=== PATIENT | male | born 1970 | race Caucasian/White ===

== ENCOUNTER 2018-12-18 20:42 | Emergency (ER) | payer OTHER ==
[2018-12-18 20:48] VITALS: BP 127/77
[2018-12-18] MEDS ORDERED: DOXYCYCLINE HYCLATE 100 MG CAP/TAB PO ONE (21:08)
--- NOTE | 2018-12-18 21:13 | EDPHY ---
H & P Stated Complaint: R elbow swelling, no injury Time Seen by Provider: 12/18/18 20:57 HPI/ROS: CHIEF COMPLAINT: Right elbow swelling and erythema and warmth HISTORY OF PRESENT ILLNESS: The patient is a 48-year-old man with a history of eczema who uses topical steroid cream. The over the last 24 hr he has noticed swelling of the bursa of his right elbow. Mild erythema. Minimally tender. Slight warmth. No history of gout or arthritis. No pain with range of motion of elbow. No known trauma. No known repetitive use. He states that he did notice it after playing Frisbee earlier today and having several acrobatic catches. He has not had a fever. Severity: Moderate Modifying factors: None REVIEW OF SYSTEMS: Constitutional: denies: chills, fever, recent illness, recent injury EENTM: denies: blurred vision, double vision, nose congestion Respiratory: denies: cough, shortness of breath Cardiac: denies: chest pain, irregular heart rate, lightheadedness, palpitations Gastrointestinal/Abdominal: denies: abdominal pain, diarrhea, nausea, vomiting, blood streaked stools Genitourinary: denies: dysuria, frequency, hematuria, pain Musculoskeletal: denies: joint pain, muscle pain Skin: denies: lesions, rash, jaundice, bruising Neurological: denies: headache, numbness, paresthesia, tingling, dizziness, weakness Hematologic/Lymphatic: denies: blood clots, easy bleeding, easy bruising Immunologic/allergic: denies: HIV/AIDS, transplant 10 systems reviewed and negative except as noted EXAM: GENERAL: Well-appearing, well-nourished and in no acute distress. HEAD: Atraumatic, normocephalic. EYES: Pupils equal round and reactive to light, extraocular movements intact, sclera anicteric, conjunctiva are normal. ENT: TMs normal, nares patent, oropharynx clear without exudates. Moist mucous membranes. NECK: Normal range of motion, supple without lymphadenopathy or JVD. LUNGS: Breath sounds clear to auscultation bilaterally and equal. No wheezes rales or rhonchi. HEART: Regular rate and rhythm without murmurs, rubs or gallops. ABDOMEN: Soft, nontender, normoactive bowel sounds. No guarding, no rebound. No masses appreciated. BACK: No CVA tenderness, no spinal tenderness, step-offs or deformities EXTREMITIES: Small olecranon bursitis. Minimal fluid collection palpable. Mild erythema. Normal range of motion, no pitting or edema. No clubbing or cyanosis. NEUROLOGICAL: Cranial nerves II through XII grossly intact. Normal speech, normal gait. 5/5 strength, normal movement in all extremities, normal sensation , normal reflexes PSYCH: Normal mood, normal affect. SKIN: See above. Warm, dry, normal turgor, no visible rashes or lesions. Source: Patient Exam Limitations: No limitations - Personal History Current Tetanus/Diphtheria Vaccine: Yes Current Tetanus Diphtheria and Acellular Pertussis (TDAP): Yes - Medical/Surgical History Hx Asthma: No Hx Chronic Respiratory Disease: No Hx Diabetes: No Hx Cardiac Disease: No Hx Renal Disease: No Hx Cirrhosis: No Hx Alcoholism: No Hx HIV/AIDS: No Hx Splenectomy or Spleen Trauma: No - Social History Smoking Status: Never smoked Constitutional: Initial Vital Signs Temperature (C) 36.7 C 12/18/18 20:46 Heart Rate 80 12/18/18 20:46 Respiratory Rate 16 12/18/18 20:46 Blood Pressure 127/77 H 12/18/18 20:46 O2 Sat (%) 95 12/18/18 20:46 O2 Delivery Mode Room Air Allergies/Adverse Reactions: No Known Allergies Allergy (Unverified 12/18/18 20:45) Home Medications: Medication Instructions Recorded Cortizone-10 12/18/18 Doxycycline Hyclate [Vibramycin] 500 mg PO QID #60 cap 12/18/18 Medical Decision Making ED Course/Re-evaluation: Patient appears to have olecranon bursitis however I am concerned for infection because it is slightly warm and red. I do not think there is significant amount of fluid to tap and I am concerned about putting a needle through the erythematous skin. Will start on doxycycline. He will follow up with his orthopedist in [place] in 2-3 days. Discussed indications for returning including fevers or worsening symptoms or pain. Does not appear to involve the joint space the clinically. No visible abrasions or lacerations. He does not wish to have an x-ray performed. Differential Diagnosis: Partial list of the Differential diagnosis considered include but were not limited to; olecranon bursitis, septic bursitis and although unlikely based on the history and physical exam, I also considered septic joint, gout, rheumatoid arthritis, fracture. I discussed these differential diagnoses and the plan with the patient as well as the usual and expected course. The patient understands that the diagnosis is provisional and that in medicine we are not always correct and that further workup is often warranted. Usual and customary warnings were given. All of the patient's questions were answered. The patient was instructed to return to the emergency department should the symptoms at all worsen or return, otherwise to followup with the physician as we discussed. - Data Points Medications Given: Discontinued Medications Doxycycline Hyclate (Doxycycline Hyclate) 500 mg PO EDNOW ONE PRN Reason: Protocol Stop: 12/18/18 21:09 Last Admin: 12/18/18 21:24 Dose: 500 mg Departure - Departure Disposition: Home, Routine, Self-Care Clinical Impression: Olecranon bursitis of right elbow Condition: Good Instructions: Elbow Bursitis (ED) Referrals: JUAN J CARRASCO [Other] - As per Instructions Prescriptions: Doxycycline Hyclate [Vibramycin] 500 mg PO QID #60 cap
== END 2018-12-18 21:25 | disposition home or self-care (01) ==
DX: M70.21 Olecranon bursitis, right elbow (principal)